=== PATIENT | female | born 2000 | race Caucasian/White ===

== ENCOUNTER 2022-06-02 15:13 | Emergency (ER) | payer OTHER, SELFPAY ==
[2022-06-02 15:13] VITALS: BP 121/80; PULSE 89; RESP 16; TEMP 36.5; O2SAT 100; BMI 25.4
--- NOTE | 2022-06-02 15:25 | RAD_ITS ---
STUDY: X-RAY - LEFT SHOULDER REASON FOR EXAM: Female, 21 years old. Trauma. Pain. TECHNIQUE: 3 view(s) of the shoulder. COMPARISON: None. FINDINGS: Normal glenohumeral articulation. Normal acromioclavicular joint. Normal acromion. Normal humeral head and visualized proximal humerus. The soft tissue structures are unremarkable. Normal visualized pulmonary apex. RAD/Shoulder min 2 Views IMPRESSION: Normal x-ray examination of the shoulder. Electronically Signed: Pierre Knox, at 15:38 EST ,
--- NOTE | 2022-06-02 17:17 | EX.ED.GENINJ ---
HPI History of Present Illness Chief Complaint: Trauma Informant: patient and family Narrative Narrative: This patient was thrown off a horse couple hours ago. She landed on her left shoulder and hit her face. She states her face does not hurt. There are abrasions. She had no loss of consciousness. She is not on any blood thinners. No history of hemophilia. Her pain is really in the posterior left shoulder/scapular area. Only on the left that she hurt. Right is not painful. Her legs do not hurt. She has been up walking around without difficulty. She has no spine pain neck pain or abdominal pain. She has no chest pain. She states she is breathing totally normally. Pressing on the area makes it worse as does motion. Rest makes a little better. Ice pack was applied which did help. PFSH PFSH Home Medications hydrocodone-acetaminophen 5-325mg 5mg-325mg 1 tab PO Q6H PRN pain 3 days #10 tabs 06/02/22 [Rx Last Taken Unknown] Allergy/AdvReac Type Severity Reaction Status Date / Time No Known Allergies Allergy Verified 06/02/22 15:15 Social History Smoking Status: Never smoker ROS ROS ED Constitutional Constitutional ED: Denies fever(s) Eyes Eyes: Denies blurry vision or change in vision ENT ENT ED: Reports other Details: Patient has abrasions in the left eyebrow and left cheek. There is really none of these that are amenable to suturing. There is no active bleeding. She states there is no real pain or tenderness. ; Denies ear pain, rhinorrhea or sore throat Cardiovascular Cardiovascular: Denies chest pain or palpitations Respiratory/Chest Respiratory/Chest: Denies cough or dyspnea Gastrointestinal Gastrointestinal: Denies abdominal pain, nausea or vomiting Genitourinary Genitourinary ED: Denies hematuria Musculoskeletal Musculoskeletal: Reports arthralgias and other Details: See history of present illness. ; Denies back pain, myalgias or neck pain Integumentary Reports Abrasions Neurologic Neurologic: Denies headache(s) Endocrine Endocrinology: Denies polydipsia or polyuria Hematologic/Lymphatic Hematologic/Lymphatic: Denies easy bleeding or easy bruising Allergic/Immunologic Allergic/Immunologic ED: Denies urticaria EXAM Physical Exam Const Vital Signs: 06/02/22 15:13 06/02/22 17:14 Temperature 97.7 F L Temperature Source Temporal Pulse Rate 89 Respiratory Rate 16 Respiratory Effort Normal Blood Pressure 121/80 H Blood Pressure Mean 93 Pulse Ox 100 Oxygen Delivery Method Room Air Positive well nourished and well developed Constitutional Narrative: Patient sitting calmly in bed. She has obvious abrasions in the face. But she gives a very clear history and carries on a normal conversation. She looks reasonably comfortable. She is holding her left arm to stabilize it for comfort. General Appearance ED: well developed HEENT HEENT Narrative: Multiple abrasions around the left eyebrow and left cheek. None of these are really open or amenable to suturing. There is no active bleeding. No bony tenderness. No subcu air. No facial anesthesia. Eyes EOMs intact bilaterally General Eye ED: Yes other Other Details: No abrasion or subconjunctival hemorrhage. No limitation of range of motion. No limitation of upward gaze. Chest Wall inspection of chest normal Chest Narrative: No subcu air. No crepitance. See extremity exam below also. Resp normal respiratory effort and clear to auscultation bilaterally Auscultation: Negative for rales, rhonchi or wheezes Cardio regular rhythm and no murmurs Cardio Narrative: No muffled heart tones. GI normal to inspection, nondistended, normoactive bowel sounds, non-tender and non-distended Palpation: soft; Negative for tender or guarding Back/Spine normal to inspection and no thoracic nor lumbar tenderness Back/Spine Narrative: No tenderness anywhere on the cervical thoracic or lumbar spine. Extremity Extremity Narrative: There is minimal abrasion to the lateral aspect of the left shoulder overlying the humerus and acromion. But there is no tenderness there. No indication of dislocation clinically. No clavicular tenderness. No tenderness more distally in the arm. She does have tenderness really toward the lower tip and slight lower medial border of the left scapula. I do not see any bruising swelling or abrasions at this time. There is no subcu air. No crepitance with palpation. 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 Neuro oriented x3, no focal motor deficits and no sensory deficits noted Psych mental status grossly normal Skin Skin Narrative: Abrasions as above in the exam MDM MDM MDM Narrative Medical decision making narrative: X-rays of the left shoulder and left scapula looked at by me are read by radiology as negative. However, when I look at the scapular views there is one of the 2 views that looks like there may be a small fracture at the base. This is the area where she is painful so I think this could be a real fracture even though we only see in on 1 of all her images.She has a total of 5 images. I explained that I do think this is fracture. Even though this is a scapular fracture it is a small tip and is even questionable I do not think this needs advanced imaging. Patient has been stable and nothing else hurts. Her breathing is normal. I will write for a sling. I explained that she should use the sling for support but she still needs to put the shoulder through range of motion. This will help to avoid stiffness of the shoulder joint that is actually not affected. Lab Data Attestation: I reviewed the patient's lab results. Radiography Diagnostic Testing: Clinical Impression(s) from Imaging Studies Shoulder X-Ray 06/02/22 15:25 IMPRESSION: Normal x-ray examination of the shoulder. Electronically Signed: Pierre Knox at 15:38 EST , Scapula X-Ray 06/02/22 17:27 IMPRESSION: Negative. Electronically Signed: Fred Peraza MD at 17:51 EST , See [facility] Discharge Plan Triage Chief Complaint: Trauma ED Provider: Nestor Milian Dx/Rx/DC Orders Clinical Impression: Fall from horse, Closed fracture of left scapula Instructions: Shoulder Blade or Collarbone ... Prescriptions: New hydrocodone-acetaminophen 5-325 mg tablet 1 tab PO Q6H PRN (Reason: pain) 3 Days Qty: 10 0RF Primary Care Provider: Care Physician,No Primary Referrals: Galilea Bang, [Med Staff - Active Staff] - 1 Week if not improving Care Physician,No Primary [Primary Care Provider] - Disposition Disposition: Home, Self Care
--- NOTE | 2022-06-02 17:27 | RAD_ITS ---
INDICATION: Trauma EXAMINATION/TECHNIQUE: X-RAY - LEFT XR Scapula 2 VIEWS COMPARISON: None. FINDINGS: SOFT TISSUES: No soft tissue swelling or gas. No radiopaque foreign body. BONES/JOINTS: No acute fracture or subluxation.. Normal alignment. Preservation of the joint space.. No sclerotic or destructive changes observed. RAD/Scapula IMPRESSION: Negative. Electronically Signed: Fred Perzaa MD at 17:51 EST ,
[2022-06-02 19:16] VITALS: PULSE 79; RESP 15; O2SAT 99
[2022-06-02] MEDS: HYDROcodone Bitartrate/Apap 5/325 Tablet PO (19:28)
== END 2022-06-02 19:16 | disposition home or self-care (01) ==
PROVIDERS: Emergency Provider Emergency Medicine; Visit Provider Emergency Medicine
DX: S42.102A Fracture of unspecified part of scapula, left shoulder, initial encounter for closed fracture (principal); V80.010A Animal-rider injured by fall from or being thrown from horse in noncollision accident, initial encounter; Y93.52 Activity, horseback riding
CPT/HCPCS: 73010; 73030; 99283